=== PATIENT | female | born 1940 | race African-American/Black ===

== ENCOUNTER 2018-06-05 13:12 | Inpatient (IN) ==
[2018-06-05 14:18] LABS: Basophils % 0.4 %; Eosinophils # 0.2 K/mcL (0.0-0.6); Eosinophils % 4.2 %; Hematocrit 28.7 % (35.3-44.9); Hemoglobin 9.5 g/dL (11.5-15.4); Immature Granulocytes % 0.2 % (0-4); Lymphocytes % 39.3 %; Mean Corpuscular HGB Conc 33.1 g/dL (31.6-35.5); Mean Corpuscular Hemoglobin 30.6 pg (28.0-33.3); Mean Corpuscular Volume 92.6 fL (83.0-100.0); Mean Platelet Volume 10.6 fL (9.4-12.4); Monocytes # 0.4 K/mcL (0.0-1.3); Monocytes % 8.3 %; Neutrophils # 2.5 K/mcL (1.6-8.9); Platelet Count 236 K/mcL (140-400); Red Cell Distribution Width 13.8 % (11.5-14.5); Segmented Neutrophils % 47.6 %
[2018-06-05 14:21] LABS: INR 3.4; Prothrombin Time 38.5 Seconds (9.4-12.1)
[2018-06-05 14:23] LABS: Activated Partial Thrombo Time 41.9 Seconds (26.0-36.0)
[2018-06-05 16:16] LABS: Albumin 3.3 g/dL (3.5-5.7); Albumin/Globulin Ratio 0.9 (1.1-2.2); Bilirubin,Direct 0.2 mg/dL (0.0-0.2); Bilirubin,Indirect 0.5 mg/dL (0.0-1.2); Bilirubin,Total 0.7 mg/dL (0.3-1.0); Calcium 9.3 mg/dL (8.6-10.3); Globulin 3.6 g/dL (2.4-3.5); Potassium 3.6 mEq/L (3.5-5.1); Total Protein 6.9 g/dL (6.4-8.9)
--- NOTE | 2018-06-05 16:24 | Electrocardiograph Report ---
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
[2018-06-05] MEDS ORDERED: *HR* HYDROcodone/Acet 5/325 mg TABLET PO ONE (16:38)
[2018-06-05] MEDS ORDERED: Furosemide 40 MG/4 ML VIAL IVP ONE (16:39)
--- NOTE | 2018-06-05 16:43 | Emergency Department Note ---
Disposition Clinical Impression: Congestive heart failure Qualifiers: Heart failure type: unspecified Heart failure chronicity: acute Qualified Code(s): I50.9 - Heart failure, unspecified Disposition: Admitted As Inpatient Condition: Fair Referrals: Chuck Negron DO [Primary Care Provider] - Forms: ED Satisfaction Letter Time of Disposition: 16:54 SOB HPI - General Chief Complaint: ED Shortness of Breath/Dyspnea Stated Complaint: Short of breath and edema Time Seen by Provider: 06/05/18 13:30 Source: patient, family Mode of arrival: private vehicle Limitations: age Nursing Notes Reviewed: Yes Vital Signs Reviewed: Yes - History of Present Illness Pt Subjective Complaint: shortness of breath Onset (ago): month(s) (Several months but worse over the past week or so) Context: recent illness (Diarrhea for a week) Severity: severe (Having a hard time walking short distances without shortness of breath) Consistency/Duration: gradually worsening Improves with: upright position Worsens with: lying flat, exertion Known history of: other (Artery disease) Associated symptoms: Reports: cough, other (Bilateral lower extremity edema). Denies: chest pain, fever, sputum production Treatment prior to arrival: none Cough present: Yes Cough Description: Non-Productive Cough Frequency: Intermittent Sputum production: No - Related Data Home Medications Medication Instructions Recorded Confirmed Aspirin [Lo-Dose Aspirin EC] 81 mg PO DAILY 06/21/17 06/05/18 Carvedilol [Coreg] 25 mg PO BID 06/21/17 06/05/18 Cholecalciferol (D-3) [Vitamin D] 5,000 unit PO DAILY 06/21/17 06/05/18 Donepezil [Aricept] 10 mg PO DAILY 06/21/17 06/05/18 Ferrous Sulfate 325 mg PO DAILY 06/21/17 06/05/18 Furosemide [Lasix] 20 mg PO DAILY 06/21/17 06/05/18 HYDROcodone/Acet 5/325 mg [[place] 1 tab PO Q6H PRN 06/21/17 06/05/18 5-325 mg] Hydralazine HCl 50 mg PO BID 06/21/17 06/05/18 Isosorbide DInitrate [Isordil] 10 mg PO BID 06/21/17 06/05/18 [place]-3/Dha/Epa/Fish Oil [Fish Oil 1 each PO DAILY 06/21/17 06/05/18 1,000 mg Softgel] Omeprazole [PriLOSEC] 20 mg PO DAILY 06/21/17 06/05/18 Paricalcitol 1 mcg PO DAILY 06/21/17 06/05/18 Repaglinide [Prandin] 2 mg PO BID 06/21/17 06/05/18 Ubidecarenone/Vit E Acetate [Co 1 each PO DAILY 06/21/17 06/05/18 Q-10 100 mg Softgel] Warfarin [Coumadin] 1.25 mg PO SUTUTH 06/21/17 06/05/18 Warfarin [Coumadin] 2.5 mg PO MOWEFRSA 06/21/17 06/05/18 Previous Rx's Medication Instructions Recorded amLODIPine [Norvasc] 5 mg PO DAILY #0 06/21/17 Allergies Allergy/AdvReac Type Severity Reaction Status Date / Time No Known Allergies Allergy Verified 06/21/17 10:55 All systems ED: reviewed and negative except as stated. Constitutional: Denies: fever, chills ENT ED: Denies: ear pain, throat pain, congestion Cardiovascular: Denies: chest pain, palpitations Respiratory: Reports: dyspnea Gastrointestinal: Reports: diarrhea. Denies: abdominal pain, nausea, vomiting Musculoskeletal: Denies: back pain Integumentary: Denies: rash Neurological: Denies: headache Endocrine: Reports: fatigue Past Medical History - Past Medical History Attestation: Yes The following information was validated with the patient. Source: patient, old records reviewed, obtained from family, nursing notes reviewed Medical history: Reports: coronary artery disease, DVT, diabetes, hyperlipidemia, hypertension, myocardial infarction, renal disease Surgical history: Reports: coronary bypass (CABG), hysterectomy, orthopedic, other Psychiatric history: Reports: no psych history BACKSHOE PERSON history: Reports: no BACKSHOE PERSON history - Social History Smoking Status: Never smoker Smokeless Tobacco Status: No Alcohol use: Reports: none Drug use: Reports: none Physical Exam - General Limitations: age General appearance: alert, in no apparent distress - Head Head exam: atraumatic, normocephalic, normal inspection - Eye Eye exam: Present: normal appearance, PERRL, EOMI. Absent: scleral icterus, conjunctival injection - ENT ENT exam: normal exam, normal oropharynx, mucous membranes moist, normal external ear exam - Neck Neck exam: Present: normal inspection, full ROM, trachea midline - Chest Chest inspection: Present: normal inspection, symmetric chest wall rise. Absent: tenderness - Respiratory Respiratory exam: Present: other (Rales in bilateral bases). Absent: respiratory distress, wheezes - Cardiovascular Cardiovascular exam: Present: regular rate, normal rhythm, normal heart sounds - Abdominal Exam Abdominal exam: Present: soft, tenderness, normal bowel sounds Abdominal tenderness: Present: RUQ, mild - Extremities Exam Extremities exam: Present: full ROM, pedal edema (Bilateral) - Neurological Exam Neurological exam: Present: alert, oriented X3 - Psychiatric Psychiatric exam: Present: normal affect, normal mood - Skin Skin exam: Present: warm, dry. Absent: rash Course Course Narrative: Patient presents with vague shortness of breath that she describes as dyspnea on exertion as well as orthopnea. This is associated with swelling of the legs. Been worsening over couple of months but worse in the past week or so. On physical exam she is got rales in the lungs and obvious edema to legs. Seems consistent with CHF. We will do a workup for shortness of breath. Patient also complained of diarrhea over the past week. I will check her for C. difficile as well. - Reevaluation(s) Reevaluation #1: BNP came back elevated. Chest x-ray shows pulmonary edema. Kidney functions, while elevated chronically, as good as they have been in the past year. I am going to give her some Lasix. They are be running some of the blood work so were still waiting for those results to come back. However given the patient's diagnosis and the way she is describing the severity of her symptoms then we better admit her to the hospital for diuresis Time: 16:45 - Consultations Consultation #1: Dr. Mclean, hospitalist - I discussed the case with the hospitalist. He is accepting the patient for admission. Time: 16:53 Vital Signs Temperature 98 F 06/05/18 13:15 Pulse Rate 71 06/05/18 13:15 Respiratory Rate 18 06/05/18 13:15 Blood Pressure 142/83 06/05/18 13:15 O2 Sat by Pulse Oximetry 98 06/05/18 13:15 Temperature 98 F 06/05/18 13:15 Pulse Rate 68 06/05/18 15:15 Respiratory Rate 18 06/05/18 15:15 Blood Pressure 165/122 06/05/18 15:15 O2 Sat by Pulse Oximetry 99 06/05/18 15:15 Oxygen Delivery Oxygen Delivery Room Air Shortness of Breath/Dyspnea - Medical Records Medical records reviewed: Yes I reviewed the patient's medical records. - Lab Data Lab results reviewed: Yes I reviewed the patient's lab results. Result diagrams: 06/05/18 13:54 06/05/18 13:54 Lab Results 06/05/18 06/05/18 06/05/18 Range/Units 13:54 13:54 13:54 WBC 5.2 (4.3-11.1) K/mcL RBC 3.10 L (3.82-4.97) M/mcL Hgb 9.5 L (11.5-15.4) g/dL Hct 28.7 L (35.3-44.9) % MCV 92.6 (83.0-100.0) fL MCH 30.6 (28.0-33.3) pg MCHC 33.1 (31.6-35.5) g/dL RDW 13.8 (11.5-14.5) % Plt Count 236 (140-400) K/mcL MPV 10.6 (9.4-12.4) fL Immature Gran % 0.2 (0-4) % Seg Neutrophils % 47.6 % Lymphocytes % 39.3 % Monocytes % 8.3 % Eosinophils % 4.2 % Basophils % 0.4 % Neutrophils # 2.5 (1.6-8.9) K/mcL Lymphocytes # 2.0 (0.6-4.6) K/mcL Monocytes # 0.4 (0.0-1.3) K/mcL Eosinophils # 0.2 (0.0-0.6) K/mcL Basophils # 0.0 (0.0-0.2) K/mcL PT 38.5 H (9.4-12.1) Seconds INR 3.4 APTT 41.9 H (26.0-36.0) Seconds Sodium 139 (136-145) mEq/L Potassium 3.6 (3.5-5.1) mEq/L Chloride 109 H (98-107) mEq/L Carbon Dioxide 23 (23-29) mEq/L BUN 41 H (8-23) mg/dL Creatinine 4.78 H (0.60-1.20) mg/dL Est GFR ( Amer) 11 L (> 60) Est GFR (Non-Af Amer) 9 L (> 60) BUN/Creatinine Ratio 9 (6-26) Glucose 56 L (70-105) mg/dL Calculated Osmolality 296 (280-300) Calcium 9.3 (8.6-10.3) mg/dL Total Bilirubin 0.7 (0.3-1.0) mg/dL Direct Bilirubin 0.2 (0.0-0.2) mg/dL Indirect Bilirubin 0.5 (0.0-1.2) mg/dL AST 20 (13-39) Units/L ALT 17 (7-52) Units/L Alkaline Phosphatase 66 (34-104) Units/L B-Natriuretic Peptide (Less than 100) pg/mL Serum Total Protein 6.9 (6.4-8.9) g/dL Albumin 3.3 L (3.5-5.7) g/dL Globulin 3.6 H (2.4-3.5) g/dL Albumin/Globulin Ratio 0.9 L (1.1-2.2) 06/05/18 Range/Units 13:54 WBC (4.3-11.1) K/mcL RBC (3.82-4.97) M/mcL Hgb (11.5-15.4) g/dL Hct (35.3-44.9) % MCV (83.0-100.0) fL MCH (28.0-33.3) pg MCHC (31.6-35.5) g/dL RDW (11.5-14.5) % Plt Count (140-400) K/mcL MPV (9.4-12.4) fL Immature Gran % (0-4) % Seg Neutrophils % % Lymphocytes % % Monocytes % % Eosinophils % % Basophils % % Neutrophils # (1.6-8.9) K/mcL Lymphocytes # (0.6-4.6) K/mcL Monocytes # (0.0-1.3) K/mcL Eosinophils # (0.0-0.6) K/mcL Basophils # (0.0-0.2) K/mcL PT (9.4-12.1) Seconds INR APTT (26.0-36.0) Seconds Sodium (136-145) mEq/L Potassium (3.5-5.1) mEq/L Chloride (98-107) mEq/L Carbon Dioxide (23-29) mEq/L BUN (8-23) mg/dL Creatinine (0.60-1.20) mg/dL Est GFR ( Amer) (> 60) Est GFR (Non-Af Amer) (> 60) BUN/Creatinine Ratio (6-26) Glucose (70-105) mg/dL Calculated Osmolality (280-300) Calcium (8.6-10.3) mg/dL Total Bilirubin (0.3-1.0) mg/dL Direct Bilirubin (0.0-0.2) mg/dL Indirect Bilirubin (0.0-1.2) mg/dL AST (13-39) Units/L ALT (7-52) Units/L Alkaline Phosphatase (34-104) Units/L B-Natriuretic Peptide 1185 H (Less than 100) pg/mL Serum Total Protein (6.4-8.9) g/dL Albumin (3.5-5.7) g/dL Globulin (2.4-3.5) g/dL Albumin/Globulin Ratio (1.1-2.2) - Radiology Data Radiology results reviewed: Yes I reviewed the patient's radiology results. - EKG Data EKG attestation: Yes I reviewed and interpreted this EKG. EKG results narrative: Twelve-lead EKG performed at 1340 p.m. Ordered, reviewed and interpreted by ED physician. Sinus rhythm at a rate is 64. Normal axis. Good hour progression across the precordium. No acute ischemic changes. Intervals are within normal limits. Just an occasional PACs noted.
[2018-06-05 16:59] LABS: Troponin I 0.03 ng/mL (< 0.04)
[2018-06-05] MEDS ORDERED: Naloxone 0.4 MG/ML INJ IVP PRN (17:45)
[2018-06-05] MEDS ORDERED: Furosemide 20 MG/2 ML VIAL IVP SCH (18:00)
[2018-06-05] MEDS ORDERED: *HR* Warfarin 5 MG TABLET PO SCH (18:00)
[2018-06-05] MEDS: hydrALAZINE 25 MG TABLET PO SCH (21:16)
[2018-06-06] MEDS ORDERED: cloNIDine HCl 0.1 MG TABLET PO ONE (03:09)
[2018-06-06] MEDS ORDERED: Furosemide 20 MG/2 ML VIAL IVP SCH (06:00)
[2018-06-06] MEDS: *HR* Repaglinide 1 MG TABLET PO SCH ×2 (08:10→17:42)
[2018-06-06] MEDS: Cholecalciferol (D-3) 1,000 UNIT TABLET PO SCH (08:10)
[2018-06-06] MEDS: amLODIPine 5 MG TABLET PO SCH (08:11)
[2018-06-06] MEDS: hydrALAZINE 25 MG TABLET PO SCH ×2 (08:11→21:35)
[2018-06-06] MEDS: Aspirin Enteric Coated 81 MG Tablet PO SCH (08:11)
[2018-06-06] MEDS: COQ 10 PO SCH (08:12)
[2018-06-06] MEDS: *HR* HYDROcodone/Acet 5/325 mg TABLET PO PRN (08:16)
[2018-06-06] MEDS ORDERED: NON-FORMULARY MEDICATION 1 EACH EACH (Omega-3/Dha/Epa/Fish Oil [Fish Oil 1,000 Mg Softgel] PO SCH (09:00)
[2018-06-06] MEDS: Ondansetron ODT 4 MG TAB.RAPDIS SL PRN (10:18)
[2018-06-06 11:13] LABS: Bilirubin,Urine Negative (Negative); Blood,Urine Negative (Negative); Clarity,Urine Clear (Clear); Color,Urine Yellow (Yellow); Glucose,Urine (UA) Normal (Normal); Ketones,Urine Negative (Negative); Leukocyte Esterase,Urine Negative (Negative); Nitrite,Urine Negative (Negative); PH,Urine 5.5 pH Units (5.0-8.0); Protein,Urine >=300 mg/dL (Neg-Trace); Specific Gravity,Urine 1.015 (1.010-1.025); Urobilinogen,Urine Normal (Normal)
[2018-06-06 11:25] LABS: Hyaline Casts,Urine Few per lpf (None-Few); Squamous Epithelial Cell,Urine Few per lpf (None-Few)
--- NOTE | 2018-06-06 12:41 | Internal Med History&Physical ---
Date of Encounter: 06/06/18 Time of Encounter: 12:15 Assessment and Plan (1) Congestive heart failure Current visit: Yes Status: Chronic BN peptide elevated at 1185. IV diuretics will be given with higher dose isosorbide. Continue hydralazine and Coreg. Qualifiers: Heart failure type: diastolic Heart failure chronicity: acute Qualified Code(s): I50.31 - Acute diastolic (congestive) heart failure (2) Anemia Current visit: No Status: Chronic Anemia testing 03/27/2018 showed no factor deficiency. Likely due to chronic kidney disease. Qualifiers: Anemia type: unspecified type Qualified Code(s): D64.9 - Anemia, unspecified (3) CAD (coronary artery disease) Current visit: No Status: Chronic Status post CABG surgery approximately 2014. Continue aspirin, Coreg, Norvasc, and higher dose isosorbide. Qualifiers: Coronary Disease-Associated Artery/Lesion type: [place] artery [place] vs. transplanted heart: [place] heart Associated angina: with stable angina Qualified Code(s): I25.118 - Atherosclerotic heart disease of [place] coronary artery with other forms of angina pectoris (4) Diabetes Current visit: No Status: Chronic Hemoglobin A1c was 6.9% on 03/27/2018. Continue home diabetic med regimen. 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 (6) Hypertension Current visit: No Status: Chronic Continue Coreg, Procardia, hydralazine, and Norvasc. Qualifiers: Hypertension type: essential hypertension Qualified Code(s): I10 - Essential (primary) hypertension Internal Medicine - H&P: HPI Chief complaint: Dyspnea Admitted From: Emergency Dept Plans for Post Hospital Care: Home History of present illness: Ms. Rosales is a 78 year old female who came to emergency room stating she had worsening dyspnea over the preceding week. She had some right lateral sharp chest pain that developed a few days after the dyspnea. She had a nonproductive cough. She had worsening edema and stated fluid was seeping from her left leg. She came to emergency room and was evaluated and was felt to have exacerbation of CHF. She was admitted to [facility] floor for ongoing care needs. Cardiovascular history is significant for hypertension. She has had DC in the past. She reports CABG surgery approximately 2014 but does not know how many vessels were bypassed or the location of the hospital. (She has diagnoses of dementia) Regadenoson EST 07/18/2017 showed LVEF of 69% with perfusion imaging negative for infarct or ischemia. Echocardiogram 11/25/2015 showed suboptimal imaging. The LVEF was estimated to be 55%. There was reported moderate diastolic dysfunction. Valves were suboptimally evaluated. Interventricular septum and posterior wall thickness measurements was 0.89 and 1.18 cm respectively. 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 She denies pulmonary embolus. Past Med Surg Social Fam HX - Past Medical History Medical history: coronary artery disease, DVT, diabetes, hyperlipidemia, hypertension, myocardial infarction, renal disease Additional medical history: sts she has problems with her nerves Psychiatric history: no psych history - Past Surgical History Surgical History: coronary bypass (CABG), hysterectomy, orthopedic, other - Social History Smoking Status: Never smoker Smokeless Tobacco Status: No Alcohol use: none Drug use: none - Family History Mother Living Status: Father Living Status: Internal Medicine - H&P: Meds Aspirin [Lo-Dose Aspirin EC] 81 mg PO DAILY 06/21/17 [History] Carvedilol [Coreg] 25 mg PO BID 06/21/17 [History] Cholecalciferol (D-3) [Vitamin D] 5,000 unit PO DAILY 06/21/17 [History] Donepezil [Aricept] 10 mg PO DAILY 06/21/17 [History] Ferrous Sulfate 325 mg PO DAILY 06/21/17 [History] Furosemide [Lasix] 20 mg PO DAILY 06/21/17 [History] HYDROcodone/Acet 5/325 mg [[place] 5-325 mg] 1 tab PO Q6H PRN 06/21/17 [History] Hydralazine HCl 50 mg PO BID 06/21/17 [History] Isosorbide DInitrate [Isordil] 10 mg PO BID 06/21/17 [History] [place]-3/Dha/Epa/Fish Oil [Fish Oil 1,000 mg Softgel] 1 each PO DAILY 06/21/17 [History] Omeprazole [PriLOSEC] 20 mg PO DAILY 06/21/17 [History] Paricalcitol 1 mcg PO DAILY 06/21/17 [History] Repaglinide [Prandin] 2 mg PO BID 06/21/17 [History] Ubidecarenone/Vit E Acetate [Co Q-10 100 mg Softgel] 1 each PO DAILY 06/21/17 [History] Warfarin [Coumadin] 1.25 mg PO SUTUTH 06/21/17 [History] Warfarin [Coumadin] 2.5 mg PO MOWEFRSA 06/21/17 [History] amLODIPine [Norvasc] 5 mg PO DAILY #0 06/21/17 [Rx] Allergy/AdvReac Type Severity Reaction Status Date / Time No Known Allergies Allergy Verified 06/21/17 10:55 All Systems PM: A 10-system review of systems was performed and is negative for pertinent findings except as documented above in the HPI. Review of systems: Gen.: Her weight has increased from 81.2 kg on 05/12/2017 to 90.435 kg on admission now. Cardiovascular: As per history of present illness Respiratory: She is a lifelong nonsmoker and denies chronic lung disease. She does not use home oxygen. GI: She reports cholecystectomy. She denies disorders of her liver or exocrine pancreas. 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 She has had AV shunt placed in her right arm but has not started hemodialysis yet. She denies other kidney or bladder disorders. Neurologic: She denies large distribution strokes or seizures. Endocrine: She was diagnosed with DM 2 approximately age 36. She has hyperlipi demia but denies thyroid disease Hematology/oncology: She has anemia but denies internal malignancies or other blood disorders Psychiatric: She denies anxiety depression or other mental health issues [place] skeletal: She has had left total knee replacement. She has DJD but denies gout or other bone joint or muscle disorders. - Constitutional Vitals: Temp Pulse Resp BP Pulse Ox 97.5 F L 49 18 156/58 98 06/06/18 10:41 06/06/18 10:41 06/06/18 10:41 06/06/18 10:41 06/06/18 10:41 Exam: Gen.: She is a well-developed overweight female lying in bed who appears in no acute distress at present time HEENT: Head is atraumatic and normocephalic. Eyes: EOMI. There is no scleral icterus. Mouth: Mucosa is moist. Neck: Supple and nontender. There is no thyromegaly or adenopathy noted. Heart: Regular without murmurs gallops or ectopics Lungs: No wheezes or crackles are heard. Abdomen: Soft and nontender. No masses or guarding are noted. Extremities: She has A-V shunt in her right arm. The left leg has 1-2+ edema of the dorsum of feet and lower leg over the anterior holly area. The right leg shows trace edema on the dorsum of the foot and lower anterior holly. She has minimal DJD changes of her hands. Neurologic: Mental status: She is talkative and a fair to good historian. She does remember some details of her history. Cranial nerves: Smile is symmetric. Forehead wrinkles bilaterally. Tongue protrudes midline. EOMI. Motor: There is no pronator drift. Cerebellar: Finger to nose is intact bilaterally. Skin: Warm and dry Internal Med - H&P Results - Labs CBC & Chem 7: 06/05/18 13:54 06/05/18 13:54 Labs: Short CBC 06/05/18 Range/Units 13:54 WBC 5.2 (4.3-11.1) K/mcL Hgb 9.5 L (11.5-15.4) g/dL Hct 28.7 L (35.3-44.9) % Plt Count 236 (140-400) K/mcL Neutrophils # 2.5 (1.6-8.9) K/mcL BMP 06/05/18 13:54 Sodium 139 Potassium 3.6 Chloride 109 H Carbon Dioxide 23 BUN 41 H Creatinine 4.78 H Glucose 56 L Calcium 9.3 Cardiac Enzymes 06/05/18 06/05/18 06/06/18 Range/Units 13:54 19:46 01:57 Troponin I 0.03 0.03 0.03 (< 0.04) ng/mL 06/06/18 Range/Units 07:38 Troponin I 0.03 (< 0.04) ng/mL Liver Function 06/05/18 Range/Units 13:54 Total Bilirubin 0.7 (0.3-1.0) mg/dL Direct Bilirubin 0.2 (0.0-0.2) mg/dL AST 20 (13-39) Units/L ALT 17 (7-52) Units/L Alkaline Phosphatase 66 (34-104) Units/L Albumin 3.3 L (3.5-5.7) g/dL Urine 06/06/18 Range/Units 08:45 Urine Color Yellow (Yellow) Urine Clarity Clear (Clear) Urine pH 5.5 (5.0-8.0) pH Units Ur Specific [place] 1.015 (1.010-1.025) Urine Protein >=300 H (Neg-Trace) mg/dL Urine Glucose (UA) Normal (Normal) mg/dL - Impressions ITS Impressions Chest X-Ray 06/05/18 13:31 IMPRESSION: Congestive heart failure and mild edema. D/ / Rica Ziegler MD / Rica Ziegler MD Interpreting Provider: Rica Ziegler MD
[2018-06-06] MEDS: Furosemide 40 MG/4 ML VIAL IVP SCH (15:44)
[2018-06-06] MEDS ORDERED: *HR* Warfarin 2.5 MG TABLET PO SCH (16:57)
[2018-06-07] MEDS: *HR* HYDROcodone/Acet 5/325 mg TABLET PO PRN ×2 (01:58→08:14)
[2018-06-07] MEDS: *HR* Repaglinide 1 MG TABLET PO SCH ×2 (08:12→16:04)
[2018-06-07] MEDS: hydrALAZINE 25 MG TABLET PO SCH ×2 (08:12→21:13)
[2018-06-07] MEDS: Cholecalciferol (D-3) 1,000 UNIT TABLET PO SCH (08:12)
[2018-06-07] MEDS: amLODIPine 5 MG TABLET PO SCH (08:13)
[2018-06-07] MEDS: Furosemide 40 MG/4 ML VIAL IVP SCH (08:13)
[2018-06-07] MEDS: Aspirin Enteric Coated 81 MG Tablet PO SCH (08:13)
[2018-06-07] MEDS: COQ 10 PO SCH (08:17)
[2018-06-07 08:37] LABS: Basophils % 0.4 %; Eosinophils # 0.2 K/mcL (0.0-0.6); Hematocrit 26.2 % (35.3-44.9); Hemoglobin 8.3 g/dL (11.5-15.4); Immature Granulocytes % 0.2 % (0-4); Lymphocytes # 2.1 K/mcL (0.6-4.6); Lymphocytes % 44.7 %; Mean Corpuscular HGB Conc 31.7 g/dL (31.6-35.5); Mean Corpuscular Volume 94.6 fL (83.0-100.0); Mean Platelet Volume 10.7 fL (9.4-12.4); Monocytes # 0.4 K/mcL (0.0-1.3); Monocytes % 8.6 %; Platelet Count 200 K/mcL (140-400); Red Blood Count 2.77 M/mcL (3.82-4.97); Red Cell Distribution Width 13.9 % (11.5-14.5); Segmented Neutrophils % 42.1 %
[2018-06-07] MEDS: Ondansetron ODT 4 MG TAB.RAPDIS SL PRN (09:15)
[2018-06-07 09:52] LABS: Calcium 9.1 mg/dL (8.6-10.3); Potassium 3.9 mEq/L (3.5-5.1)
[2018-06-07] MEDS ORDERED: *HR* HYDROcodone/Acet 5/325 mg TABLET PO PRN (10:26)
--- NOTE | 2018-06-07 10:29 | Internal Med Progress Note ---
Date of Encounter: 06/07/18 Time of Encounter: 10:20 - Assessment and plan (1) Congestive heart failure Current Visit: Yes Status: Chronic Assessment and plan: June 07. BN peptide improved to 702. Continue IV furosemide with higher dose isosorbide. Continue hydralazine and Coreg. Qualifiers: Heart failure type: diastolic Heart failure chronicity: acute Qualified Code(s): I50.31 - Acute diastolic (congestive) heart failure (2) Anemia Current Visit: No Status: Chronic Assessment and plan: June 07. Hemoglobin decreased to 8.3. Recheck in a.m. Qualifiers: Anemia type: unspecified type Qualified Code(s): D64.9 - Anemia, unspecified (3) CAD (coronary artery disease) Current Visit: No Status: Chronic Assessment and plan: June 07. Status post CABG approximately 2014. Continue aspirin, Coreg, Norvasc, and higher dose isosorbide. Qualifiers: Coronary Disease-Associated Artery/Lesion type: [place] artery [place] vs. transplanted heart: [place] heart Associated angina: with stable angina Qualified Code(s): I25.118 - Atherosclerotic heart disease of [place] coronary ar [place] with other forms of angina pectoris (4) Diabetes Current Visit: No Status: Chronic Assessment and plan: June 07. Hemoglobin A1c 6.9% on 03/27/2018. Continue present regimen. 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 Continue Coumadin (6) Hypertension Current Visit: No Status: Chronic Assessment and plan: June 07. Continue Coreg, Procardia, hydralazine, and Norvasc. Qualifiers: Hypertension type: essential hypertension Qualified Code(s): I10 - [place] l (primary) hypertension (7) Abdominal pain Current Visit: Yes Status: Acute Assessment and plan: June 07. Order CT of abdomen/pelvis to further evaluate. Qualifiers: Abdominal location: right lower quadrant Qualified Code(s): R10.31 - Right lower quadrant pain (8) CKD (chronic kidney disease) stage 5, GFR less than 15 ml/min Current Visit: Yes Status: Chronic Assessment and plan: June 07. Suspect hemodialysis to start soon. - Subjective Interval history: June 07. She states the right lateral abdominal pain is not improved. Her dyspnea has lessened. - Constitutional Vitals: Temp Pulse Resp BP Pulse Ox 97.6 F 57 16 136/60 96 06/07/18 07:23 06/07/18 07:23 06/07/18 07:23 06/07/18 07:23 06/07/18 07:23 Exam: She is lying in bed and appears in mild to moderate discomfort. Abdomen is soft and nontender to palpation. Bowel sounds are diminished. Extremity edema is trace to 1+ bilaterally. I reviewed her medications and lab results. Internal Medicine: Result - Labs CBC & Chem 7: 06/07/18 08:06 06/07/18 08:06 Labs: Short CBC 06/07/18 Range/Units 08:06 WBC 4.8 (4.3-11.1) K/mcL Hgb 8.3 L (11.5-15.4) g/dL Hct 26.2 L (35.3-44.9) % Plt Count 200 (140-400) K/mcL Neutrophils # 2.0 (1.6-8.9) K/mcL BMP 06/07/18 08:06 Sodium 138 Potassium 3.9 Chloride 107 Carbon Dioxide 24 BUN 44 H Creatinine 5.53 H Glucose 115 H Calcium 9.1 Urine 06/06/18 Range/Units 08:45 Urine Color Yellow (Yellow) Urine Clarity Clear (Clear) Urine pH 5.5 (5.0-8.0) pH Units Ur Specific [place] 1.015 (1.010-1.025) Urine Protein >=300 H (Neg-Trace) mg/dL Urine Glucose (UA) Normal (Normal) mg/dL - ABG Interpretation ABG results: PT/INR, D-dimer PT 38.5 Seconds (9.4-12.1) H 06/05/18 13:54 Consult Discharge Plan - Plan Referrals: Chuck Negron DO [Primary Care Provider] - 1 week
[2018-06-08 04:57] LABS: Basophils % 0.4 %; Eosinophils # 0.2 K/mcL (0.0-0.6); Eosinophils % 4.9 %; Hematocrit 24.6 % (35.3-44.9); Immature Granulocytes % 0.2 % (0-4); Lymphocytes # 1.8 K/mcL (0.6-4.6); Lymphocytes % 40.3 %; Mean Corpuscular HGB Conc 32.5 g/dL (31.6-35.5); Mean Corpuscular Hemoglobin 30.5 pg (28.0-33.3); Mean Corpuscular Volume 93.9 fL (83.0-100.0); Mean Platelet Volume 10.4 fL (9.4-12.4); Monocytes # 0.5 K/mcL (0.0-1.3); Neutrophils # 1.9 K/mcL (1.6-8.9); Platelet Count 186 K/mcL (140-400); Red Blood Count 2.62 M/mcL (3.82-4.97); Red Cell Distribution Width 13.9 % (11.5-14.5); Segmented Neutrophils % 43.2 %
[2018-06-08 05:02] LABS: INR 3.1; Prothrombin Time 34.8 Seconds (9.4-12.1)
[2018-06-08 05:15] LABS: Potassium 3.9 mEq/L (3.5-5.1)
[2018-06-08] MEDS: amLODIPine 5 MG TABLET PO SCH (08:31)
[2018-06-08] MEDS: Aspirin Enteric Coated 81 MG Tablet PO SCH (08:31)
[2018-06-08] MEDS: hydrALAZINE 25 MG TABLET PO SCH (08:31)
[2018-06-08] MEDS: *HR* Repaglinide 1 MG TABLET PO SCH (08:31)
[2018-06-08] MEDS: Cholecalciferol (D-3) 1,000 UNIT TABLET PO SCH (08:32)
[2018-06-08] MEDS: COQ 10 PO SCH (08:33)
[2018-06-08] MEDS: Furosemide 40 MG/4 ML VIAL IVP SCH (08:33)
--- NOTE | 2018-06-08 10:28 | Discharge Summary ---
Date of Encounter: 06/08/18 Time of Encounter: 10:17 - Discharge Diagnosis (1) Congestive heart failure Priority: Primary Status: Chronic Qualifiers: Heart failure type: diastolic Heart failure chronicity: acute Qualified Code(s): I50.31 - Acute diastolic (congestive) heart failure (2) Anemia Priority: Secondary Status: Chronic Qualifiers: Anemia type: unspecified type Qualified Code(s): D64.9 - Anemia, unspecified (3) CAD (coronary artery disease) Priority: Secondary Status: Chronic Qualifiers: Coronary Disease-Associated Artery/Lesion type: [place] artery [place] vs. transplanted heart: [place] heart Associated angina: with stable angina Qualified Code(s): I25.118 - Atherosclerotic heart disease of [place] coronary artery with other forms of angina pectoris (4) Diabetes Priority: Secondary Status: Chronic Qualifiers: Diabetes mellitus type: type 2 Diabetes mellitus group home insulin use: unspecified terminal gauger insulin use status Diabetes mellitus complication status: with kidney complications Diabetes mellitus complication detail: with chronic kidney disease Chronic kidney disease stage: stage 5, not on chronic dialysis Qualified Code(s): E11.22 - Type 2 diabetes mellitus with diabetic chronic kidney disease; N18.5 - Chronic kidney disease, stage 5 (5) History of DVT (deep vein thrombosis) Priority: Secondary Status: Chronic (6) Hypertension Priority: Secondary Status: Chronic Qualifiers: Hypertension type: essential hypertension Qualified Code(s): I10 - Essential (primary) hypertension (7) Abdominal pain Priority: Secondary Status: Acute Qualifiers: Abdominal location: right lower quadrant Qualified Code(s): R10.31 - Right lower quadrant pain (8) CKD (chronic kidney disease) stage 5, GFR less than 15 ml/min Priority: Secondary Status: Chronic Hospital course: Ms. Rosales is a 78 year old female who came to emergency room stating she had worsening dyspnea over the preceding week. She had some right lateral sharp chest pain that developed a few days after the dyspnea. She had a nonproductive cough. She had worsening edema and stated fluid was seeping from her left leg. She came to emergency room and was evaluated and was felt to have exacerbation of CHF. She was admitted to [facility] floor for ongoing care needs. Initial orders were written by the emergency room physician. I saw her on June 06 and performed a history and physical. She was started on IV diuretics. Higher dose isosorbide was given. Hydralazine and Coreg were continued as at home. She had clinical improvement with BN peptide decreasing to 784 by day of discharge. There was decrease in edema and dyspnea. She will continue higher dose isosorbide and Lasix at discharge. Abdominal/pelvic CT was done to further evaluate her abdominal pain. No worrisome pathology was seen. The etiology of the pain was not determined with certainty. On June 08 she felt improved and stable for discharge home. She will follow with her PCP Dr. Negron within 1 week. - Time Spent with Patient Total time spent providing and/or coordinating discharge services: - Discharge Medications Prescriptions: Isosorbide DInitrate [Isordil] 20 mg PO BID #120 tablet Home Medications: Aspirin [Lo-Dose Aspirin EC] 81 mg PO DAILY 06/21/17 [History] Carvedilol [Coreg] 25 mg PO BID 06/21/17 [History] Cholecalciferol (D-3) [Vitamin D] 5,000 unit PO DAILY 06/21/17 [History] Donepezil [Aricept] 10 mg PO DAILY 06/21/17 [History] Ferrous Sulfate 325 mg PO DAILY 06/21/17 [History] HYDROcodone/Acet 5/325 mg [[place] 5-325 mg] 1 tab PO Q6H PRN 06/21/17 [History] Hydralazine HCl 50 mg PO BID 06/21/17 [History] [place]-3/Dha/Epa/Fish Oil [Fish Oil 1,000 mg Softgel] 1 each PO DAILY 06/21/17 [History] Omeprazole [PriLOSEC] 20 mg PO DAILY 06/21/17 [History] Paricalcitol 1 mcg PO DAILY 06/21/17 [History] Repaglinide [Prandin] 2 mg PO BID 06/21/17 [History] Ubidecarenone/Vit E Acetate [Co Q-10 100 mg Softgel] 1 each PO DAILY 06/21/17 [History] Warfarin [Coumadin] 1.25 mg PO SUTUTH 06/21/17 [History] Warfarin [Coumadin] 2.5 mg PO MOWEFRSA 06/21/17 [History] amLODIPine [Norvasc] 5 mg PO DAILY #0 06/21/17 [Rx] Furosemide [Lasix] 40 mg PO DAILY #0 06/08/18 [Rx] Isosorbide DInitrate [Isordil] 20 mg PO BID #120 tablet 06/08/18 [Rx] Allergies/Adverse Reactions: Allergy/AdvReac Type Severity Reaction Status Date / Time No Known Allergies Allergy Verified 06/21/17 10:55 Date of admission: 06/07/18 10:48 Primary care physician: Chuck Negron DO - Constitutional Vitals: Temp Pulse Resp BP Pulse Ox 98.2 F 60 14 185/73 96 06/08/18 06:38 06/08/18 06:38 06/08/18 06:38 06/08/18 06:38 06/08/18 08:45 - Patient Status Disposition: Home, Self-Care Condition: Fair - Discharge Instructions Follow Up With: Chuck Negron DO [Primary Care Provider] - 1 week - Diet and Activity Activity: resume usual activities as tolerated Diet: diabetic diet
[2018-06-08 10:54] VITALS: BP 143/64
== END 2018-06-08 12:49 | disposition home or self-care (01) | DRG 291 ==
LOC: INPPIK 13:12 → EMEROOPIK 13:12 → INPPIK 18:03
PROVIDERS: ADMIT Internal Medicine; ATTEND Internal Medicine